=== PATIENT | male | born 2000 | race Caucasian/White ===

== ENCOUNTER 2020-09-01 18:47 | Outpatient (CLI) | payer OTHER ==
--- NOTE | 2020-09-01 20:03 | XRAY Report ---
PROCEDURE: Ankle 3 View RT INDICATIONS: RIGHT ANKLE PAIN TECHNIQUE: 3 views of the ankle were acquired. COMPARISON: None. FINDINGS: Bones: No acute fractures or dislocations. Ankle mortise is normally aligned. No suspicious bony l esions. An accessory os trigonum is noted. Soft tissues: Soft tissue edema is seen over the lateral malleolus. IMPRESSION: No acute osseous abnormality. Soft tissue edema is most prominent over the lateral malle olus. If there is clinical concern or persistent symptoms, additional imaging such as repeat radiogra phs or advanced imaging (e.g. CT, MRI) may be helpful for further evaluation. Reviewed by: Raimundo Mann MD on 09/01/2020 8:01 PM PDT Approved by: Raimundo Mann MD on 09/01/2020 8:01 PM PDT Station ID: [id number]
== END 2020-09-01 18:48 | disposition home or self-care (01) ==
LOC: DI.N 18:47
PROVIDERS: ATTEND Family Medicine
DX: M25.571 Pain in right ankle and joints of right foot (principal)